=== PATIENT | female | born 1960 | race Caucasian/White ===

== ENCOUNTER 2017-09-21 01:37 | Emergency (ER) | payer MEDICAID ==
[2017-09-21] MEDS ORDERED: Metoclopramide IV* 5 MG/ML 2 ML VIAL IV ONE (02:17)
[2017-09-21] MEDS ORDERED: Dexamethasone IV* 4 MG/ML 1 ML (4 MG) IV SLOW PU ONE (02:17)
[2017-09-21] MEDS ORDERED: diPHENhydraMINE IV* 50 MG/ML 1 ml VIAL (BENADRYL) IV ONE (02:17)
[2017-09-21] MEDS ORDERED: Ketorolac INJ* 30 MG/ML 1 ML VIAL IV PUSH ONE (02:17)
[2017-09-21 03:25] VITALS: BP 105/62
--- NOTE | 2017-09-21 04:31 | ED ---
Madelyn Adams Emily, scribed for Sujit Flores MD on 09/21/17 at 0218 . Abdominal Pain/Female - HPI Summary HPI Summary: This patient is a 57 year old F presenting to [facility] with a chief complaint of epigastric abd pain that began 3 days ago. The patient rates the pain 8/10 in severity. Symptoms aggravated by nothing. Symptoms alleviated by nothing. Patient reports sore throat (began today), nasal discharge, cough, headache, and CP. Patient denies diarrhea and fever. - History of Current Complaint Chief Complaint: EDGeneral Stated Complaint: THROAT PAIN, HEADACHE Time Seen by Provider: 09/21/17 02:08 Hx Obtained From: Patient Onset/Duration: Sudden Onset, Lasting Days, Still Present Timing: Constant Severity Initially: Severe Severity Currently: Severe Pain Intensity: 8 Pain Scale Used: 0-10 Numeric Location: Epigastric Radiates: No Aggravating Factor(s): Nothing Alleviating Factor(s): Nothing Associated Signs and Symptoms: Positive: Other: - Positive sore throat (began today), nasal discharge, cough, headache, and CP. Negative diarrhea and fever Allergies/Adverse Reactions: Allergies Allergy/AdvReac Type Severity Reaction Status Date / Time levofloxacin [From Levaquin] Allergy Airway Verified 09/21/17 01:44 Obstruction Penicillins Allergy Airway Verified 09/21/17 01:44 Obstruction BEES Allergy Difficulty Uncoded 09/21/17 01:44 Breathing PMH/Surg Hx/FS Hx/Imm Hx Previously Healthy: Yes Endocrine/Hematology History: Denies: Hx Anticoagulant Therapy, Hx Diabetes, Hx Thyroid Disease Cardiovascular History: Denies: Hx Hypertension, Hx Pacemaker/ICD Respiratory History: Denies: Hx Asthma, Hx Chronic Obstructive Pulmonary Disease (COPD) GI History: Denies: Hx Ulcer History: Denies: Hx Renal Disease Neurological History: Denies: Hx Dementia, Hx Seizures Psychiatric History: Denies: Hx Substance Abuse - Surgical History Surgery Procedure, Year, and Place: partial hysterectomy - one ovary and both tubes (benign cyst) Infectious Disease History: No Infectious Disease History: Denies: Hx Clostridium Difficile, Hx Hepatitis, Hx Human Immunodeficiency Virus (HIV), Hx of Known/Suspected MRSA, Hx Shingles, Hx Tuberculosis, Hx Known/ Suspected VRE, Hx Known/Suspected VRSA, History Other Infectious Disease, Traveled Outside the [place] in Last 30 Days - Family History Known Family History: Negative: Cardiac Disease, Hypertension - Social History Occupation: Employed Full-time Lives: Alone Alcohol Use: Rare Substance Use Type: Reports: None Smoking Status (MU): Light Every Day Tobacco Smoker Type: Cigarettes Length of Time of Smoking/Using Tobacco: 6 cigs per week Review of Systems Negative: Fever Positive: Sore Throat, Nasal Discharge Positive: Chest Pain Positive: Cough Negative: Diarrhea Positive: Headache All Other Systems Reviewed And Are Negative: Yes Physical Exam - Summary Physical Exam Summary: Appearance: Well appearing, no pain distress Skin: warm, dry, reflects adequate perfusion Head/face: normal Eyes: EOMI, RUDI ENT: clear nasal discharge Neck: supple, non-tender Respiratory: CTA, breath sounds present Cardiovascular: RRR, pulses symmetrical Abdomen: non-tender, soft Bowel Sounds: present Musculoskeletal: normal, strength/ROM intact Neuro: normal, sensory motor intact, A&Ox3 Triage Information Reviewed: Yes Vital Signs On Initial Exam: Initial Vitals Temp Pulse Resp BP Pulse Ox 97.7 F 85 18 150/81 100 09/21/17 01:40 09/21/17 01:40 09/21/17 01:40 09/21/17 01:40 09/21/17 01:40 Vital Signs Reviewed: Yes Diagnostics - Vital Signs Vital Signs Temp Pulse Resp BP Pulse Ox 09/21/17 01:40 97.7 F 85 18 150/81 100 - Laboratory Lab Results: Lab Results 09/21/17 Range/Units 03:02 Influenza A (Rapid) Negative (Negative) Influenza B (Rapid) Negative (Negative) Lab Statement: Any lab studies that have been ordered have been reviewed, and results considered in the medical decision making process. Re-Evaluation - Re-Evaluation First Eval Re-Evaluation Time: 03:30 Change: Unchanged Comment: Discussed plan of care with pt Abdominal Pain Fem Course/Dx - Course Course Of Treatment: Patient with cough and cold symptoms as well as headache, sore throat. Treated here symptomatically with relief. Flu swabs are negative. Lungs are clear. Tree symptomatically, follow-up primary care physician. - Diagnoses Differential Diagnosis: Positive: Pneumonia, Other - Viral, flu, bronchitis, COPD exacerbation Provider Diagnoses: Viral syndrome, Tobacco abuse Discharge - Sign-Out/Discharge Documenting (check all that apply): Discharge/Admit/Transfer - Discharge - Discharge Plan Condition: Good Disposition: HOME Prescriptions: Guaifenesin/Pseudoephedrne HCl [Mucinex D ER Tablet] 1 each PO BID PRN #[email or web address] PRN Reason: Congestion Patient Education Materials: Upper Respiratory Infection (ED) Referrals: [facility]ERR[facility] [Outside] Additional Instructions: Cut back on smoking. Humidifier while sleeping. Drink plenty of fluids, Tylenol or ibuprofen may help. Return with difficulty breathing, new symptoms, worse or other concerns. - Billing Disposition and Condition Condition: GOOD Disposition: HOME The documentation as recorded by the Madelyn spaulding Emily accurately reflects the service I personally performed and the decisions made by me, Sujit Flores MD.
== END 2017-09-21 03:48 | disposition home or self-care (01) ==
LOC: ED 01:37
DX: B34.9 Viral infection, unspecified (principal); Z72.0 Tobacco use
CPT/HCPCS: 87502; 96374; 96375; 99282; J1100; J1200; J1885; J2765